=== PATIENT | male | born 1945 | race Caucasian/White ===

== ENCOUNTER 2017-08-28 10:05 | Day surgery (SDC) | payer MEDICARE ==
--- NOTE | 2017-08-28 05:47 | History and Physical Report ---
DATE: 08/27/2017. CHIEF COMPLAINT AND HISTORY OF CHIEF COMPLAINT: This patient presents with a history of multiple spine surgeries and intractable pain which is in the back, hip, and leg. The history is chronic. There have been a number of conservative efforts including a spinal cord stimulator trial. There was also a spinal opioid infusion trial with single-dose, percutaneous injections which did not help. His current medications include oral morphine and Percocet. He wants to get off medications. He is here for an implanted spinal catheter infusion trial with hydromorphone. His diagnostic studies show pedicle screw and deacon fusion of the lumbar spine from 2-3 to 5-1. PAST MEDICAL HISTORY: Neuropathy and intractable pain, degenerative arthritis, depression, difficulty sleeping. SOCIAL HISTORY: Social alcohol, caffeine. FAMILY HISTORY: Diabetes. PAST SURGICAL HISTORY: Multiple lumbar spinal surgeries, foot surgery, shoulder surgery. EMPLOYMENT STATUS: Retired. MEDICATIONS ON ADMISSION: To be provided. No blood thinners. ALLERGIES: Anti-inflammatories. PHYSICAL EXAMINATION: General: Height is 6 feet. Weight is 180 pounds. Vital Signs: Blood pressure 140/80. Musculoskeletal: Current examination shows diffuse tenderness in the lumbar spine. Range of motion does cause pain throughout the low back and extending into both lower extremities across the front and back surfaces. Ambulation: No assistive device utilized. Neurologic: Cranial nerves are intact. IMPRESSION: 1. POSTLUMBAR LAMINECTOMY SYNDROME, ICD-10 CODE M96.1. 2. LUMBAR RADICULITIS, ICD-10 CODE M54.16 AND M54.17. PLAN: The patient is here for an implanted spinal catheter infusion trial with hydromorphone to determine if the implantation of a permanent system can be of any value in pain control. The potential risks, side effects, and complications have been carefully reviewed and discussed including spinal cord injury, paralysis, nerve root injury, and spinal headache. He understands that if the implanted catheter trial is successful it will take us to a permanent implant of the device or pump itself. Should the implanted catheter trial fail , then another surgery will be necessary to remove the implanted catheter. He also understands that because of the multiple levels of hardware fusion, an epidural blood patch, which is a prophylactic measure against spinal headaches, will not be possible. He will be kept flat inhouse for four hours and then slowly elevated for one hour as a measure. All of the other risks and side effects have been reviewed. He has been given all of the appropriate information from the purchasing and claims supervisor which details the risks. All of his questions were answered. ETIENNE JUDGE D.O. Date & Time JOB NUMBER: [id number] cc: Primary [facility]
[~2017-08-28 10:05] MED LIST: ACETAMINOPHEN 1,000 MG/100 ML BTL IV ONE; CEFAZOLIN 2 Gram 2 GM/50 ML BAG IVPB ONE; FAMOTIDINE 20MG TABLET PO ONE; HYDROMORPHONE PF 2MG/ML AMP 0.004 MG in 0.9 % SODIUM CHLORIDE 10ML VIA 0.998 ML IV ONE; HYDROMORPHONE PF 2MG/ML AMP 2 MG in 0.9 % SODIUM CHLORIDE 500ML 499 ML IV ONE; MECLIZINE 25 MG TABLET PO ONE; METOCLOPRAMIDE 10 MG TABLET PO ONE
[2017-08-28] MEDS ORDERED: HYDROMORPHONE HCL 1 MG/ML CPJ IM PRN (12:19)
[2017-08-28] MEDS ORDERED: DIPHENHYDRAMINE HCL IV 50 MG/ML VIAL IVP PRN ×2 (12:19)
[2017-08-28] MEDS ORDERED: TEMAZEPAM 15 MG CAPSULE PO PRN ×2 (12:19)
[2017-08-28] MEDS ORDERED: METOCLOPRAMIDE 10 MG TABLET PO PRN (12:19)
[2017-08-28] MEDS ORDERED: METOCLOPRAMIDE HCL 10 MG/2 ML VIAL IVP PRN (12:19)
[2017-08-28] MEDS ORDERED: AL HYDROX/MAG HYDROX 30ML UD PO PRN (12:19)
[2017-08-28] MEDS ORDERED: ACETAMINOPHEN 325 MG TAB PO PRN ×2 (12:19)
[2017-08-28] MEDS ORDERED: OXYCODONE/APAP 10MG-325MG TABLET PO PRN ×2 (12:19)
[2017-08-28] MEDS ORDERED: SENNOSIDES/DOCUSATE SODIUM UD CAPSULE PO PRN ×2 (12:19)
[2017-08-28] MEDS ORDERED: RINGERS SOLUTION,LACTATED 1,000 ML IV SCH (12:19)
[2017-08-28] MEDS ORDERED: NALOXONE 0.4 MG/1 ML VIAL IVP PRN (12:19)
[2017-08-28] MEDS ORDERED: DIPHENHYDRAMINE HCL 25 MG CAPSULE PO PRN ×2 (12:19)
[2017-08-28] MEDS ORDERED: HYDROMORPHONE HCL 2 MG/ML VIAL IM PRN (12:19)
[2017-08-28] MEDS ORDERED: HYDROCODONE/APAP 7.5/325MG TABLET PO PRN ×2 (12:19)
[2017-08-28] MEDS ORDERED: RINGERS SOLUTION,LACTATED 1,000 ML IV PRN (13:18)
[2017-08-28] MEDS ORDERED: LIDOCAINE 1% W/EPI 1:200,000 MPF 30ML SQ ONE (15:00)
[2017-08-28] MEDS ORDERED: CEFAZOLIN 1G VIAL IM ONE (15:00)
[2017-08-28] MEDS ORDERED: BUPIVACAINE 0.5% W/EPI MPF 30 ML VIAL IVP ONE (15:00)
[2017-08-28] MEDS ORDERED: GABAPENTIN 300 MG CAPSULE PO SCH (16:00)
[2017-08-28] MEDS ORDERED: PROPOFOL 10 MG/ML VIAL IV ONE (16:16)
[2017-08-28] MEDS ORDERED: FENTANYL PF 100MCG/2ML VIAL IV ONE (16:16)
[2017-08-28] MEDS ORDERED: LIDOCAINE 2% MDV (20MG/ML) 20ML VIAL IV ONE (16:16)
[2017-08-28] MEDS ORDERED: *PACU ONLY* KETAMINE HCL 10 MG/ML (20ML) VIAL IV ONE (16:16)
[2017-08-28] MEDS ORDERED: MIDAZOLAM HCL 2MG/2ML VIAL IV ONE (16:16)
[2017-08-28] MEDS ORDERED: CEFAZOLIN 2 Gram 2 GM/50 ML BAG IVPB SCH (19:00)
[2017-08-28] MEDS ORDERED: ZOLPIDEM TARTRATE 5 MG TABLET PO SCH (22:00)
[2017-08-29] MEDS ORDERED: LISINOPRIL 10 MG TABLET PO SCH (10:00)
--- NOTE | 2017-08-29 16:06 | Operative Note - Ferro ---
DATE OF SURGERY: 08/28/17 PREOPERATIVE DIAGNOSES: 1. POST LUMBAR LAMINECTOMY SYNDROME, ICD-10 CODE = M96.1. 2. LUMBAR RADICULITIS, ICD-10 CODE = M54.16 AND M54.17. OPERATION: 1. FLUOROSCOPICALLY-GUIDED ACCESS SPINAL SPACE AT L3-4, PLACEMENT OF THIN- WALLED SPINAL CATHETER TIP T11. 2. DIAGNOSTIC MYELOGRAPHY WITH RADIOLOGIC SUPERVISION AND INTERPRETATION. 3. SPINAL OPIOID BOLUS HYDROMORPHONE 0.002 MG SPINAL SPACE. 4. INCISION, SUBCUTANEOUS DISSECTION, AND ANCHORING OF SPINAL CATHETER TO SUPRASPINOUS FASCIA USING ANCHOR AND NONABSORBABLE SUTURE. 5. INCISION, SUBCUTANEOUS DISSECTION, AND CREATION OF SMALL SUBCUTANEOUS POUCH , RIGHT POSTERIOR GLUTEAL MARGIN. 6. TUNNELING BETWEEN MIDLINE SPINAL CATHETER AND RIGHT POSTERIOR GLUTEAL POUCH TUNNELING SPINAL CATHETER INTO POUCH. 7. INTERFACE SPINAL CATHETER AT RIGHT POUCH WITH CONNECTOR INTERFACING TO SECONDARY CATHETER COMPONENT. TUNNELING OF SECOND CATHETER COMPONENT 6 CM SUPERIOR EXITING SKIN. 8. INTERFACE EXTERNAL CATHETER WITH EXTERNAL INFUSION DEVICE SET TO DELIVER HYDROMORPHONE CONTINUOUS INFUSION AT 0.04 MG A DAY. 9. CLOSURE OF MIDLINE INCISION VICRYL FOR FASCIA AND RUNNING SUBCUTICULAR VICRYL FOR SKIN. CLOSURE OF POSTERIOR POUCH WITH NYLON SUTURE. DRESSINGS PLACED SECURING CATHETER AND ALL CONNECTIONS UNDER STERILE DRESSING. SURGEON: ETIENNE JUDGE D.O. ANESTHESIA: LOCAL SEDATION. ANESTHESIA PROVIDER: CLAY BATRES CRNA INDICATION: This patient presents with a history of multiple spinal surgeries and intractable lumbar radiculitis. His diagnostics confirm fusion with screws and rods at 2-3 and 3-4, decompression laminectomy 3-4 to 5-1, and multiple level cages. Due to the failure of all therapies, he is here for an implanted spinal catheter infusion trial with Hydromorphone to determine if the implantation of a permanent system can be of any value in pain control. PROCEDURE: Intravenous line, vital sign monitoring, IV sedation, prepped and draped in sterile technique. Patient position prone. Sterile technique and under imaging, after careful review and evaluation of the anatomy using AP and lateral imaging, the upper aspect of the decompression laminectomy at L3-4 was opted for. Skin infiltrated, a spinal gauge needle paramedian approach, beveled with a long axis, and using an angled access into the spinal space keeping the bevel superior into the spinal space as possible, this advanced under AP and lateral imaging. With CSF flow, a thin-walled spinal catheter was advanced positioned at T11. Diagnostic myelography performed demonstrating appropriate flow characteristics. A bolus of Hydromorphone 0.002 mg given into the spinal space. Catheter clamped to stop CSF leak. The skin above and below the incision was infiltrated, incision made, and subcutaneous dissection was conducted to the supraspinous fascia. The needle was remove and the catheter was anchored to the supraspinous fascia with an anchoring device and nonabsorbable suture. Antibiotic irrigation. Bovie for hemostasis. At the right posterior gluteal margin, a site picked by the patient for the eventual pump, skin infiltrated, incision made, and subcutaneous dissection was conducted to form a small pouch. A tunneling tool was then used to carry the midline spinal catheter into the posterior pouch. The spinal catheter was then interfaced with a second catheter component and resected by way of a connector. The second catheter component was then tunneled superior exiting skin 6 cm from this site. The externalized catheter was then interfaced to an external infusion pump set to deliver by Hydromorphone at 0.04 mg a day. The midline incision was closed Vicryl for fascia and running subcuticular Vicryl for skin. The posterior pouch closed with nylon suture. No epidural blood patch because of extensive spinal surgery. After the midline incision was closed with Vicryl for fascia and running subcuticular Vicryl for skin, a Dermabond closure was used at the midline. Sterile dressing was then placed covering all of the incisional sites and the catheter with its components maintaining the catheter and its connections under sterile dressing. The external catheter interfaced to the external pump delivering 0.04 mg a day. He was transported to the Recovery Room flat, pillow under head and knees. He will stay flat for four hours then slowly elevated for one once he is transported to the Floor. DISCHARGE INSTRUCTIONS: 1. Sites will remain clean and dry. No showering or bathing in any way that would disrupt the dressings. 2. Standard medications resumed including Levaquin, the antibiotic, 500 mg once a day for 14 days. 3. As a prophylactic measure against the spinal headache, caffeinated beverages , coffee and cokes, have been recommended. Should the headaches start, he should lay flat, give it a few hours today, continue with his fluid intake and contact the clinic. His standard medications will be resumed reducing analgesics. All other instructions provided, numbers to contact, problems given. The office will contact the patient at home within the next 24-48 hours. We will schedule three possible increases; the first within the first three days. All other instructions provided, numbers to contact, problems given. He will be discharged. cc: Dr. Hopkins JOB NUMBER: [id number] MTDD
--- NOTE | 2017-08-29 19:26 | RADIOLOGY REPORT ---
EXAM: SPINE, 1 VIEW HISTORY: PAIN PUMP TRIAL. COMPARISON: None. TECHNIQUE: AP lumbar spine. FINDINGS: Two catheter tips overlie the lower thoracic spine extending cephalad to the T8-9 level. Fusion rods in the mid lumbar spine. IMPRESSION: TWO CATHETER TIPS EXTEND CEPHALAD OVERLYING THE T8-9 LEVEL. JOB NUMBER: [id number] MTDD
== END 2017-08-28 17:15 | disposition home or self-care (01) ==
LOC: SUR 10:05 → UNDOADMIN 13:04 → MEDSURG 13:04 → SUR 17:15
PROVIDERS: ATTEND Pain Medicine Interventional Pain Medicine
DX: M96.1 Postlaminectomy syndrome, not elsewhere classified (principal); M54.17 Radiculopathy, lumbosacral region; M06.9 Rheumatoid arthritis, unspecified; I10 Essential (primary) hypertension
CPT/HCPCS: 72020; 62350; 00630; Q9967; J3010; J0690; J1170; J7040

== ENCOUNTER 2017-09-11 07:54 | Day surgery (SDC) | payer MEDICARE ==
--- NOTE | 2017-09-11 06:28 | History and Physical Report ---
DATE: 09/10/2017. CHIEF COMPLAINT AND HISTORY OF CHIEF COMPLAINT: This is a patient with a history of multiple laminectomies and spinal surgeries. He has an implanted spinal catheter infusion trial with hydromorphone which appears to be unsuccessful. He is here for removal of the device. PAST MEDICAL HISTORY: Peripheral neuropathy, degenerative arthritis, depression , difficulty sleeping. SOCIAL HISTORY: Social alcohol, caffeine. FAMILY HISTORY: Diabetes. PAST SURGICAL HISTORY: Lumbar spinal surgeries, foot surgery, shoulder surgery. EMPLOYMENT STATUS: Retired. MEDICATIONS ON ADMISSION: To be provided. ALLERGIES: Anti-inflammatories. PHYSICAL EXAMINATION: General: Height is 6 feet, weight is 180. Vital Signs: Not available. HEENT: Within normal limits. Lungs: Clear. Heart: Regular rate and rhythm. Abdomen: Nontender. Musculoskeletal: Examination of the musculoskeletal system shows the implanted catheter in place. All of the dressings are in place. Sensory [place] are intact. Neurologic: Cranial nerves are intact. IMPRESSION: 1. POSTLUMBAR LAMINECTOMY SYNDROME. 2. IMPLANTED SPINAL CATHETER INFUSION TRIAL WITH HYDROMORPHONE. PLAN: The patient is here for removal of the implanted catheter because of a failed trial. The procedure will be outpatient. An overnight stay should not be required. ETIENNE JUDGE D.O. Date & Time JOB NUMBER: [id number] cc: Nadya Spence
[~2017-09-11 07:54] MED LIST changes: -HYDROMORPHONE PF 2MG/ML AMP 0.004 MG in 0.9 % SODIUM CHLORIDE 10ML VIA 0.998 ML IV ONE; -HYDROMORPHONE PF 2MG/ML AMP 2 MG in 0.9 % SODIUM CHLORIDE 500ML 499 ML IV ONE
[2017-09-11] MEDS ORDERED: OXYCODONE/APAP 10MG-325MG TABLET PO ONE (13:56)
[2017-09-11] MEDS ORDERED: FENTANYL PF 100MCG/2ML VIAL IV ONE ×2 (13:56→14:00)
[2017-09-11] MEDS ORDERED: *PACU ONLY* KETAMINE HCL 10 MG/ML (20ML) VIAL IV ONE (14:00)
[2017-09-11] MEDS ORDERED: LIDOCAINE 2% MDV (20MG/ML) 20ML VIAL IV ONE (14:00)
[2017-09-11] MEDS ORDERED: PROPOFOL 10 MG/ML VIAL IV ONE (14:00)
[2017-09-11] MEDS ORDERED: MIDAZOLAM HCL 2MG/2ML VIAL IV ONE (14:00)
[2017-09-11] MEDS ORDERED: LIDOCAINE 1% W/EPI 1:200,000 MPF 30ML SQ ONE (15:47)
[2017-09-11] MEDS ORDERED: CEFAZOLIN 1G VIAL IM ONE (15:47)
[2017-09-11] MEDS ORDERED: BUPIVACAINE 0.5% W/EPI MPF 30 ML VIAL IVP ONE (15:47)
--- NOTE | 2017-09-12 06:35 | Operative Note - Ferro ---
DATE OF SURGERY: 09/11/2017. PREOPERATIVE DIAGNOSIS: 1. POSTLUMBAR LAMINECTOMY SYNDROME, ICD-10 CODE M96.1. 2. LUMBAR RADICULITIS, ICD-10 CODE M54.16 AND M54.17. 3. IMPLANTED SPINAL OPIOID INFUSION CATHETER INFUSION TRIAL WITH HYDROMORPHONE UNSUCCESSFUL. POSTOPERATIVE DIAGNOSIS: 1. POSTLUMBAR LAMINECTOMY SYNDROME, ICD-10 CODE M96.1. 2. LUMBAR RADICULITIS, ICD-10 CODE M54.16 AND M54.17. 3. IMPLANTED SPINAL OPIOID INFUSION CATHETER INFUSION TRIAL WITH HYDROMORPHONE UNSUCCESSFUL. OPERATION: 1. INCISION, SUBCUTANEOUS DISSECTION, AND REMOVAL OF INDWELLING IMPLANTED SPINAL CATHETER. 2. INCISION, SUBCUTANEOUS DISSECTION, AND REMOVAL OF EXTERNALIZED SPINAL CATHETER. SURGEON: Deo Phillip D.O. ANESTHESIA: Local. ANESTHESIA PROVIDER: Diana Ledezma CRNA. INDICATION: This patient presents with an implanted spinal catheter trial infusion with hydromorphone which failed to appreciably control pain. He is here for removal. It is a two-catheter component with an indwelling catheter and an external catheter. PROCEDURE: Intravenous line, vital sign monitoring, and intravenous sedation. Prepped and draped with sterile technique, under imaging. At the right posterior gluteal margin incisional pouch, the skin was infiltrated. An incision was made and subcutaneous dissection was conducted to the interface between internal and external catheters. The connector was cut and the externalized catheter was removed by pulling from the external component out, removing the internal component through the skin. Antibiotic irrigation and Bovie for hemostasis. The midline incision was then infiltrated and an incision was made. Subcutaneous dissection was then conducted to the implanted spinal catheter. The anchor was identified. All of the suture was cut, and the anchor was from the subcutaneous and supraspinal tissues. A pursestring suture was placed around the penetration point for the spinal catheter. The catheter was then removed from the spinal space, and the pursestring suture was tightened, stopping central spinous fluid leak. Antibiotic irrigation and Bovie for hemostasis. Both incisions were then closed with Vicryl for the fascia and giovany for the skin. Dressings were placed. He was transferred to the recovery room stable, showing no side effects from the procedure or the sedation. When fully awake and alert, he will be discharged to home. DISCHARGE INSTRUCTIONS: 1. Sites to remain clean and dry. 2. Standard medications to be resumed as follows: Oral Dilaudid 2.0 mg 1 to 2 q. 4 to 6 hours maximum, 4 a day for 10 days. To supplement he has oral 10/325 Percocet. Along with this, Librium will be provided 25 mg q. 4 hours p.r.n. Side effects such as withdrawal syndrome were explained. 3. The patient will be contacted at home. We will remove the giovany in five to seven days. The office will contact the patient and his to set up the appoint. 4. All other instructions were provided, numbers to contact and possible problems given. He will then be evaluated. If any withdrawal symptoms happen or take place, he is to contact the clinic. JOB NUMBER: [id number] cc: Claudio Hopkins D.O. MTDMiky
== END 2017-09-11 11:30 | disposition home or self-care (01) ==
LOC: SUR 07:54
PROVIDERS: ATTEND Pain Medicine Interventional Pain Medicine
DX: T85.890A Other specified complication of nervous system prosthetic devices, implants and grafts, initial encounter (principal); M96.1 Postlaminectomy syndrome, not elsewhere classified; M54.16 Radiculopathy, lumbar region; M54.17 Radiculopathy, lumbosacral region; G62.9 Polyneuropathy, unspecified; I10 Essential (primary) hypertension; L40.50 Arthropathic psoriasis, unspecified
CPT/HCPCS: 62355; 00300; J3010; J0690